=== PATIENT | female | born 1935 | race Caucasian/White ===

== ENCOUNTER 2019-12-20 19:12 | Emergency (ER) | payer MEDICARE, BC, SELFPAY ==
--- NOTE | 2019-12-20 19:16 | XR_ITS ---
WS: [id number] XR chest 1V portable [id number] REASON FOR EXAM: cp FINDINGS: Arteriosclerotic changes in the arch the aorta are seen. The heart is normal in size. The lung lux are well aerated. The chest is unchanged since May 22, 2013. XR/XR chest 1V portable [id number] IMPRESSION: Arteriosclerotic changes.
--- NOTE | 2019-12-20 19:17 | ED_ITS ---
HPI - Chest Pain General: Chief Complaint: Arrhythmia/Palpitations Stated Complaint: high heart rate Time Seen by Provider: 12/20/19 19:12 Source: patient and EMS Mode of arrival: EMS Limitations: no limitations History of Present Illness: HPI narrative: 84-year-old female states she is outside working start having palpitations and slight chest pain EMS arrived and found her to be in SVT which she is unsure she had a history of. Patient given adenosine in route and converted. Patient states she is now asymptomatic and feels much improved. She denies any shortness of breath. Denies any fevers. MD complaint: chest pain Onset (ago): hour(s) Associated symptoms: Reports palpitations; Deny abdominal pain, dyspnea, fever(s), nausea or vomiting Review of Systems Const: Denies: fever(s), chills, body aches or change in appetite Eyes: Denies: blurry vision or eye discomfort ENMT: Denies: throat pain or dental pain Card: Reports: chest pain and palpitations Resp: Denies: dyspnea GI: Denies: abdominal pain, nausea, vomiting or diarrhea : Denies: dysuria Musc: Denies: neck pain or back pain Skin/Breast: Denies: rash Neuro: Denies: headache(s) Psych: Denies: depression Ray/Lymph: Denies: easy bruising All/Imm: Denies: urticaria PFSH ED PFSH: Social History Smoking and tobacco status: former smoker Physical Exam Const: COMMON NORMALS: no acute distress, patient oriented x3 and healthy appearing HENMT: COMMON NORMALS: normocephalic and atraumatic HEAD & SCALP: normocephalic and atraumatic Eye: COMMON NORMALS: Equal, round and reactive pupils present and EOMs intact bilaterally PUPIL: Yes Equal, round and reactive pupils present Neck/C-Spine: COMMON NORMALS: full ROM and supple Chest: COMMONS NORMALS: normal inspection of the chest and normal palpation of entire chest wall Resp: COMMON NORMALS: normal respiratory effort, No retractions, No use of accessory muscles and clear to auscultation bilaterally AUSCULTATION: clear to auscultation bilaterally Cardio: COMMON NORMALS: regular rate, regular rhythm and No murmurs present (Cardio) RATE: regular rate RHYTHM: regular rhythm GI: COMMON NORMALS: Normal to inspection, nondistended, normoactive bowel sounds present, Soft to palpation, non-tender and no masses PALPATION: Yes Soft to palpation Extremity: COMMON NORMALS: normal to inspection and full ROM Neuro: COMMON NORMALS: patient oriented x3, moves all extremities and no focal motor deficits Psych: COMMON NORMALS: mental status grossly normal, Normal thought process p resent and cooperative THOUGHT PROCESS: Normal thought process present Skin: COMMON NORMALS: no rashes or lesions noted and no wounds GENERAL SKIN EXAM: no rashes or lesions noted Course Vital Signs: Vital signs: Vital Signs Temperature 98.2 F 12/20/19 19:19 Pulse Rate 81 12/20/19 21:16 Respiratory Rate 21 H 12/20/19 21:16 Blood Pressure 122/83 12/20/19 21:16 Pulse Oximetry 96 12/20/19 21:16 MDM - Chest Pain MDM Narrative: Medical decision making narrative: Patient presents here with likely SVT. She is converted by EMS with adenosine and has been asymptomatic since then. Patient's troponins are negative. Patient is requesting discharge and she is stable for discharge and is to follow-up with her spectral scientist in 3 to 5 days return if worsening. She understands and agrees to plan. Lab Data: Labs: Lab Results 12/20/19 12/20/19 12/20/19 Range/Units 19:21 19:21 19:21 WBC 6.8 (4.0-10.0) 10^3/ uL RBC 4.99 (4.1-5.3) 10^6/u L Hgb 14.0 (11.5-15.3) g/dL Hct 45.0 (37.0-47.0) % MCV 90.2 (81-99) fL MCH 28.1 (28.0-34.0) pg MCHC 31.1 (30.0-36.0) g/dL RDW 13.2 (12.1-15.1) % Plt Count 239 (130-400) 10^3/c mm MPV 11.7 H (7.4-10.4) fL Neut % (Auto) 48.6 % Lymph % (Auto) 40.1 % [place] % (Auto) 8.2 % Eos % (Auto) 2.1 % Baso % (Auto) 0.9 % Neut # (Auto) 3.3 (1.8-7.7) 10^3/u L Lymph # (Auto) 2.7 (0.8-4.8) 10^3/u L [place] # (Auto) 0.6 (0.2-0.9) 10^3/u L Eos # (Auto) 0.1 (0.0-0.8) 10^3/u L Baso # (Auto) 0.1 (0.0-0.1) 10^3/u L Nucleated RBC % (a uto) 0 % Nucleated RBCs # 0.0 /100WBC Sodium 141 (136-145) mmol/L Potassium 4.1 (3.5-5.1) mmol/L Chloride 103 (98-107) mmol/L Carbon Dioxide 26 (22-29) mmol/L Anion Gap 16.1 (5-19) BUN 11 (8-23) mg/dL Creatinine 0.7 (0.5-0.9) mg/dL Glucose 150 H (65-115) mg/dL Calculated Osmolal ity 291 (285-295) mOsm/k g Calcium 9.7 (8.5-10.5) mg/dL Total Bilirubin 0.3 (0.15-1.2) mg/dL AST 23 (0-32) U/L ALT 13 (0-33) U/L Alkaline Phosphata se 63 (35-105) IU/L Troponin T Baselin e 12 H (0-10) ng/L Troponin T 120 Min [place] (0-10) ng/L Delta Troponin T (0-10) ABS# Total Protein 6.4 L (6.6-8.7) g/dL Albumin 4.3 (3.5-5.2) g/dL Globulin 2.1 (1.3-4.6) g/dL 12/20/19 Range/Units 20:55 WBC (4.0-10.0) 10^3/ uL RBC (4.1-5.3) 10^6/u L Hgb (11.5-15.3) g/dL Hct (37.0-47.0) % MCV (81-99) fL MCH (28.0-34.0) pg MCHC (30.0-36.0) g/dL RDW (12.1-15.1) % Plt Count (130-400) 10^3/c mm MPV (7.4-10.4) fL Neut % (Auto) % Lymph % (Auto) % [place] % (Auto) % Eos % (Auto) % Baso % (Auto) % Neut # (Auto) (1.8-7.7) 10^3/u L Lymph # (Auto) (0.8-4.8) 10^3/u L [place] # (Auto) (0.2-0.9) 10^3/u L Eos # (Auto) (0.0-0.8) 10^3/u L Baso # (Auto) (0.0-0.1) 10^3/u L Nucleated RBC % (a uto) % Nucleated RBCs # /100WBC Sodium (136-145) mmol/L Potassium (3.5-5.1) mmol/L Chloride (98-107) mmol/L Carbon Dioxide (22-29) mmol/L Anion Gap (5-19) BUN (8-23) mg/dL Creatinine (0.5-0.9) mg/dL Glucose (65-115) mg/dL Calculated Osmolal ity (285-295) mOsm/k g Calcium (8.5-10.5) mg/dL Total Bilirubin (0.15-1.2) mg/dL AST (0-32) U/L ALT (0-33) U/L Alkaline Phosphata se (35-105) IU/L Troponin T Baselin e (0-10) ng/L Troponin T 120 [address] [place] 18.31 H (0-10) ng/L Delta Troponin T 6.31 (0-10) ABS# Total Protein (6.6-8.7) g/dL Albumin (3.5-5.2) g/dL Globulin (1.3-4.6) g/dL Imaging Data^: CXR: Attestation: I personally reviewed and interpreted this imaging study as follows: My impression: no acute abnormality EKG Data^: EKG 1: Attestation: I personally reviewed and interpreted this EKG as follows: EKG interpretation date: 12/20/19 EKG interpretation time: 19:37 Interpretation: nsr hr [address] or t wave abnormalities qrs 113 qtc 406 EKG 2: Attestation: I personally reviewed and interpreted this EKG as follows: EKG interpretation date: 12/20/19 EKG interpretation time: 20:57 Interpretation: nsr hr [address] or t wave abnormalities qrs 90 qtc 416 Discharge Plan Discharge Patient Disposition: Home, Self-Care Clinical Impression: Palpitations, Supraventricular tachycardia Condition: Stable Prescriptions: No Action lisinopril 5 mg Tablet 5 mg PO BID RF: 0 Zyrtec 10 mg Tablet 10 mg PO PRN RF: 0 Aspir-81 81 mg Tablet,Delayed Release (Dr/Ec) 162 mg PO PRN RF: 0 rosuvastatin 20 mg Tablet 20 mg PO QPM RF: 0 Vitamin C 1 tab PO DAILY RF: 0 Vitamin D3 1 cap PO DAILY RF: 0 Discharge Orders: Discharge Order (Routine); Ordered 12/20/19 Ordered By: Rene Amaro Referrals: Aggie Armando MD [Physician] - 1-3 days Flex Nelson MD [Primary Care Provider] - Discharge Diet: Advance as tolerated Discharge Activity: Resume usual activity Patient Instructions: Supraventricular Tachycardia (ED) Coding Level of Care Code ED 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
[2019-12-20 19:19] VITALS: BP 149/87; PULSE 104; RESP 16; TEMP 36.8; O2SAT 96; BMI 24.5
[2019-12-20 19:30] LABS: Basophils # 0.1 10^3/uL (0.0-0.1); Basophils % 0.9 %; Eosinophils # 0.1 10^3/uL (0.0-0.8); Eosinophils % 2.1 %; Lymphocytes # 2.7 10^3/uL (0.8-4.8); Lymphocytes % 40.1 %; Mean Corpuscular HGB Conc 31.1 g/dL (30.0-36.0); Mean Corpuscular Hemoglobin 28.1 pg (28.0-34.0); Mean Corpuscular Volume 90.2 fL (81-99); Mean Platelet Volume 11.7 fL (7.4-10.4); Monocytes # 0.6 10^3/uL (0.2-0.9); Monocytes % 8.2 %; Neutrophils # 3.3 10^3/uL (1.8-7.7); Neutrophils % 48.6 %; Nucleated Red Blood Cells % 0 %; Platelet Count 239 10^3/cmm (130-400); Red Blood Count 4.99 10^6/uL (4.1-5.3); Red Cell Distribution Width 13.2 % (12.1-15.1); White Blood Count 6.8 10^3/uL (4.0-10.0)
[2019-12-20 19:49] VITALS: BP 137/80; PULSE 98; RESP 18; O2SAT 96
[2019-12-20 20:00] LABS: Alanine Aminotransferase 13 U/L (0-33); Albumin Level 4.3 g/dL (3.5-5.2); Alkaline Phosphatase 63 IU/L (35-105); Anion Gap 16.1 (5-19); Aspartate Amino Transferase 23 U/L (0-32); Blood Urea Nitrogen 11 mg/dL (8-23); Calcium 9.7 mg/dL (8.5-10.5); Carbon Dioxide 26 mmol/L (22-29); Chloride 103 mmol/L (98-107); Creatinine Clr Calc Pharmacy 53.1254; Globulin 2.1 g/dL (1.3-4.6); Glucose 150 mg/dL (65-115); Osmolality Calculated 291 mOsm/kg (285-295); Potassium 4.1 mmol/L (3.5-5.1); Sodium 141 mmol/L (136-145); Total Bilirubin 0.3 mg/dL (0.15-1.2); Total Protein 6.4 g/dL (6.6-8.7)
[2019-12-20 20:03] LABS: Troponin(5th) Baseline 12 ng/L (0-10)
[2019-12-20 20:09] VITALS: BP 150/82; PULSE 93; RESP 16; O2SAT 96
[2019-12-20 20:43] VITALS: PULSE 90; RESP 19; O2SAT 95
--- NOTE | 2019-12-20 21:03 | PC.NURSE ---
EKG done at 2100 and shown to ER doctor
[2019-12-20 21:16] VITALS: BP 122/83; PULSE 81; RESP 21; O2SAT 96
--- NOTE | 2019-12-20 21:16 | ECG_ITS ---
[facility] ED Test Date: 2019-12-20 Pat Name: Ailyn Anthony Department: Room: Gender: Female Facility Manager: : 1935 Requested By: Rene Amaro Order Number: [id number] Stephania MD: Fernando Camargo M.D. Measurements Intervals [place] Rate: 89 P: 48 VT: 147 QRS: 10 QRSD: 90 T: 61 QT: 370 QTc: 450 Interpretive Statements SINUS RHYTHM No previous ECG available for comparison Electronically Signed On 12-21-2019 7:57:04 CDT by Feranndo Camargo M.D. [id number]
[2019-12-20 21:35] LABS: Troponin 5 2HR 18.31 ng/L (0-10); Troponin 5 2HR Delta 6.31 ABS# (0-10)
[2019-12-20 21:55] VITALS: BP 127/80; PULSE 79; RESP 25; O2SAT 95
--- NOTE | 2019-12-26 09:56 | DCPLANNER ---
late entry- systems integration manager had message to schedule a follow up appointment for patient with [facility]. systems integration manager called [facility], spoke with Deirdre, a follow up appointment was scheduled for Tuesday, December 24, 2019 at 10:00. Patient did attend the appointment.
== END 2019-12-20 22:04 | disposition home or self-care (01) ==
PROVIDERS: Emergency Provider Emergency Medicine; PCP Family Medicine
DX: I47.1 Supraventricular tachycardia (principal); Z79.82 Long term (current) use of aspirin; Z87.891 Personal history of nicotine dependence
CPT/HCPCS: 12345; 71045; 80053; 84484; 85025; 93005; 99283; 99284

== ENCOUNTER 2020-09-16 12:54 | Outpatient (CLI) | payer MEDICARE, BC, SELFPAY ==
--- NOTE | 2020-09-16 12:56 | MM_ITS ---
WS: [id number] BILATERAL DIGITAL SCREENING MAMMOGRAPHY WITH CAD CLINICAL INFORMATION: SCREENING HISTORY: Screening mammogram. No current complaints. COMPARISON: June 04, 2019 TECHNIQUE: Bilateral CC and MLO views. FINDINGS: Scattered fibroglandular densities bilaterally. No suspicious focal mass, asymmetry, calcifications, or architectural distortion. No evidence of malignancy. Lucent centered and punctate calcifications. Vascular calcifications. MM/[place] [id number] IMPRESSION: BI-RADS: 2-Benign FOLLOW UP: 1 Year Follow-up Recommend return to annual screening mammography.
== END 2020-09-16 12:55 | disposition home or self-care (01) ==
LOC: RADSHAW 12:55
PROVIDERS: PCP Nurse Practitioner Family; Visit Provider Nurse Practitioner Family
DX: Z12.31 Encounter for screening mammogram for malignant neoplasm of breast (principal)
CPT/HCPCS: 77067

== ENCOUNTER 2022-01-13 10:16 | Emergency (ER) | payer MEDICARE, BC, SELFPAY ==
--- NOTE | 2022-01-13 10:25 | ECG_ITS ---
[facility] Test Date: 2022-01-13 Pat Name: Ailyn Anthony Department: Room: Gender: Female Professor Of Counseling: : 1935 Requested By: Yakov Hou Order Number: [id number] Stephania MD: Marcela Brennan M.D. Measurements Intervals [place] Rate: 87 P: 48 [place]: 160 QRS: 18 QRSD: 94 T: 61 QT: 380 QTc: 457 Interpretive Statements SINUS RHYTHM LOW QRS VOLTAGE IN PRECORDIAL LEADS [QRS DEFLECTION < 1.0 mV IN CHEST LEADS] Compared to ECG 12/20/2019 20:57:23 Low QRS voltage now present Electronically Signed On 01-13-2022 23:40:26 CDT by Marcela Brennan M.D. [id number] f
--- NOTE | 2022-01-13 10:25 | XR_ITS ---
WS: [id number] Portable AP upright chest, 01/13/2022 Clinical Data: chest pain Comparison: Portable chest, 12/20/2019. Findings: No nodules, masses or effusions are seen. The heart is normal. The pulmonary vascularity is not increased. No pneumonia or pneumothorax is seen. The aortic arch and descending thoracic aorta s how tortuosity. Monitor leads are on the chest wall. XR/XR chest 1V portable [id number] Impression: Atherosclerosis.
[2022-01-13 10:34] VITALS: BP 147/86; PULSE 83; RESP 15; O2SAT 94; BMI 24.2
[2022-01-13 10:36] LABS: Basophils # 0.1 10^3/uL (0.0-0.1); Basophils % 0.6 %; Eosinophils # 0.2 10^3/uL (0.0-0.8); Eosinophils % 1.9 %; Hematocrit 45.5 % (37.0-47.0); Hemoglobin 14.6 g/dL (11.5-15.3); Lymphocytes # 3.2 10^3/uL (0.8-4.8); Lymphocytes % 34.2 %; Mean Corpuscular HGB Conc 32.1 g/dL (30.0-36.0); Mean Corpuscular Hemoglobin 27.4 pg (28.0-34.0); Mean Corpuscular Volume 85.5 fl (81-99); Mean Platelet Volume 12.5 fL (7.4-10.4); Monocytes # 0.7 10^3/uL (0.2-0.9); Monocytes % 7.6 %; Neutrophils # 5.21 10^3/uL (1.8-7.7); Neutrophils % 55.5 %; Nucleated Red Blood Cells % 0 %; Platelet Count 262 10^3/cmm (130-400); Red Blood Count 5.32 10^6/uL (4.1-5.3); Red Cell Distribution Width 13.7 % (12.1-15.1); White Blood Count 9.4 10^3/uL (4.0-10.0)
[2022-01-13] MEDS: aspirin 81 mg Chew Tablet 324 MG PO (10:41)
[2022-01-13 10:55] LABS: Alanine Aminotransferase 17 U/L (0-33); Albumin Level 4.4 g/dL (3.5-5.2); Alkaline Phosphatase 83 IU/L (35-105); Anion Gap 14.7 (5-19); Aspartate Amino Transferase 27 U/L (0-32); Blood Urea Nitrogen 16 mg/dL (8-23); Calcium 9.5 mg/dL (8.5-10.5); Carbon Dioxide 27 mmol/L (22-29); Chloride 104 mmol/L (98-107); Globulin 2.9 g/dL (1.3-4.6); Glucose 102 mg/dL (65-115); Osmolality Calculated 295 mOsm/kg (285-295); Potassium 3.7 mmol/L (3.5-5.1); Sodium 142 mmol/L (136-145); Total Bilirubin 0.4 mg/dL (0.15-1.2); Total Protein 7.3 g/dL (6.6-8.7)
[2022-01-13 11:01] LABS: Troponin(5th) Baseline 9 ng/L (0-10)
[2022-01-13 11:04] VITALS: BP 166/112; PULSE 93; RESP 15; O2SAT 97
[2022-01-13] MEDS: metoprolol succinate ER (24 HR) 25 mg Tablet PO (11:20)
--- NOTE | 2022-01-13 12:24 | W.ED.DIZZY ---
HPI - Dizziness General: Chief Complaint: Dizziness Stated Complaint: SVT Time Seen by Provider: 01/13/22 10:23 Source: patient Mode of arrival: ambulatory Limitations: no limitations History of Present Illness: HPI Narrative: 83-iwww-meij-old female presents emergency room via EMS she was helping take care of a family member this morning and while course or exerting herself suddenly had onset of SVT. She has known history of SVT she got lightheaded and dizzy from when she went to lay down it showed no signs relenting and she called EMS. EMS treated with adenosine in the field the time she arrived here she is in normal sinus rhythm without symptoms. She did have some transient chest pain with the episode but that has resolved. She is not currently taking anything for rate control is taking 20 mg a day of lisinopril. MD elicited complaint: dizziness, lightheadedness and near syncope Pertinent past history: other (SVT) Onset (ago): minute(s) Timing: sudden onset Severity: moderate Description: lightheadedness Context: change in body position History of similar symptoms: Yes Exacerbating factors: movement/ambulation Relieving factors: rest Associated symptoms: Reports nausea and palpitations; Denies change in hearing, chest pain, chills, cough, diaphoresis, ear discharge, ear pressure, fevers/chills, headache(s), malaise, nasal congestion, rash, short of breath, syncope, tinnitus, vomiting or weakness Review of Systems Const: Denies: fever(s), chills, fatigue, malaise or diaphoresis ENMT: Denies: ear discharge, change in hearing, tinnitus or nasal congestion Card: Reports: palpitations, irregular heart rhythm, lightheadedness and pre-syncope; Denies: chest pain or syncope Resp: Denies: dyspnea, productive cough or non-productive cough GI: Reports: nausea; Denies: abdominal pain or vomiting : Denies: flank pain, difficulty voiding, dysuria, urinary frequency or urinary urgency Skin/Breast: Denies: rash or pruritus Neuro: Denies: headache(s) PFS ED PFSH: Medical History History of palpitations Supraventricular tachycardia Surgical History Hx of hysterectomy Hx of ligation of vein Hx of tonsillectomy Family History Grandmother CAD (coronary artery disease) Hyperlipidemia Hypertension Stroke Family/Other Cancer Dementia Sister CAD (coronary artery disease) Father Lung disease Denies family history of Diabetes Clotting disorder Psychiatric illness Chronic kidney disease (CKD) Suicide Anesthesia complication Bleeding disorder Family history of premature coronary artery disease Social History Smoking and tobacco status: former smoker Alcohol intake: current Alcohol intake frequency: holidays/special occasions only Physical Exam Const: COMMON NORMALS: no acute distress GENERAL APPEARANCE: cooperative and comfortable ORIENTATION/CONSCIOUSNESS: Yes awake, Yes oriented to person, Yes oriented to place and Yes oriented to time HENMT: COMMON NORMALS: normocephalic, atraumatic and hearing grossly normal bilaterally HEAD & SCALP: normocephalic and atraumatic Resp: COMMON NORMALS: normal respiratory effort, No retractions, No use of accessory muscles and clear to auscultation bilaterally AUSCULTATION: clear to auscultation bilaterally Cardio: COMMON NORMALS: regular rhythm RATE: tachycardic RHYTHM: regular rhythm GI: COMMON NORMALS: Soft to palpation and No hepatosplenomegaly present AUSCULTATION: Yes normoactive bowel sounds PALPATION: Yes Soft to palpation, No Tenderness to palpation present (GI), No Guarding due to palpation present (GI) and Yes No hepatosplenomegaly present Extremity: COMMON NORMALS: normal to inspection, capillary refill normal, no clubbing, cyanosis or edema, no calf tenderness and no pedal edema Neuro: SENSORIUM/ORIENTATION: Yes oriented to person, Yes oriented to place and Yes oriented to time Skin: COMMON NORMALS: no rashes or lesions noted GENERAL SKIN EXAM: no rashes or lesions noted Course Vital Signs: Vital signs: Vital Signs Pulse Rate 93 01/13/22 11:04 Respiratory Rate 15 01/13/22 11:04 Blood Pressure 166/112 01/13/22 11:04 Pulse Oximetry 97 01/13/22 11:04 MDM - Dizziness Medical Decision Making Converted from SVT to normal sinus rhythm in the field. We will start her on Toprol-XL labs reviewed and discussed with her. Troponins negative EKG does not show anything acute. Follow-up with cardiology. Medical Records I reviewed the patient's medical records. Lab Data I reviewed the patient's lab results. : 01/13/22 10:27 01/13/22 10:27 Radiology Impressions Chest X-Ray 01/13/22 10:25 Impression: Atherosclerosis. Laboratory Results WBC 9.4 10^3/uL (4.0-10.0) 01/13/22 10:27 RBC 5.32 10^6/uL (4.1-5.3) H 01/13/22 10:27 Hgb 14.6 g/dL (11.5-15.3) 01/13/22 10:27 Hct 45.5 % (37.0-47.0) 01/13/22 10: MCV 85.5 fl (81-99) 01/13/22 10:27 MCH 27.4 pg (28.0-34.0) L 01/13/22 10: MCHC 32.1 g/dL (30.0-36.0) 01/13/22 10:27 RDW 13.7 % (12.1-15.1) 01/13/22 10:27 Plt Count 262 10^3/cmm (130-400) 01/13/22 10:27 MPV 12.5 fL (7.4-10.4) H 01/13/22 10:27 Neut % (Auto) 55.5 % 01/13/22 10:27 Lymph % (Auto) 34.2 % 01/13/22 10:27 [place] % (Auto) 7.6 % 01/13/22 10:27 Eos % (Auto) 1.9 % 01/13/22 10:27 Baso % (Auto) 0.6 % 01/13/22 10:27 Neut # (Auto) 5.21 10^3/uL (1.8-7.7) 01/13/22 10:27 Lymph # (Auto) 3.2 10^3/uL (0.8-4.8) 01/13/22 10:27 [place] # (Auto) 0.7 10^3/uL (0.2-0.9) 01/13/22 10:27 Eos # (Auto) 0.2 10^3/uL (0.0-0.8) 01/13/22 10:27 Baso # (Auto) 0.1 10^3/uL (0.0-0.1) 01/13/22 10:27 Nucleated RBC % (auto) 0 % 01/13/22 10:27 Nucleated RBCs # 0.0 /100WBC 01/13/22 10:27 Sodium 142 mmol/L (136-145) 01/13/22 10:27 Potassium 3.7 mmol/L (3.5-5.1) 01/13/22 10:27 Chloride 104 mmol/L (98-107) 01/13/22 10:27 Carbon Dioxide 27 mmol/L (22-29) 01/13/22 10:27 Anion Gap 14.7 (5-19) 01/13/22 10:27 BUN 16 mg/dL (8-23) 01/13/22 10:27 Creatinine 0.7 mg/dL (0.5-0.9) 01/13/22 10:27 GFR Calculation Not Reportable 01/13/22 01:27 Glucose 102 mg/dL (65-115) 01/13/22 10:27 Calculated Osmolality 295 mOsm/kg (285-295) 01/13/22 10:27 Calcium 9.5 mg/dL (8.5-10.5) 01/13/22 10:27 Total Bilirubin 0.4 mg/dL (0.15-1.2) 01/13/22 10:27 AST 27 U/L (0-32) 01/13/22 10:27 ALT 17 U/L (0-33) 01/13/22 10:27 Alkaline Phosphatase 83 IU/L (35-105) 01/13/22 10:27 Troponin T Baseline 9 ng/L (0-10) 01/13/22 10:27 Troponin T 120 Minute 12.47 ng/L (0-10) H 01/13/22 12:37 Delta Troponin T 3.47 ABS# (0-10) 01/13/22 12:37 Total Protein 7.3 g/dL (6.6-8.7) 01/13/22 10:27 Albumin 4.4 g/dL (3.5-5.2) 01/13/22 10:27 Globulin 2.9 g/dL (1.3-4.6) 01/13/22 10:27 Discharge Plan Discharge Patient Disposition: Home Clinical Impression: Supraventricular tachycardia, Hypertension Condition: Stable Prescriptions: New Toprol XL 25 mg tablet extended release 24 hr 25 mg PO DAILY Qty: 30 0RF No Action cyanocobalamin (vitamin B-12) 1,000 mcg capsule 1,000 mcg PO DAILY 0RF cetirizine [Zyrtec] 10 mg Tablet 10 mg PO PRN PRN (Reason: Allergy Symptoms) 0RF rosuvastatin 20 mg Tablet 20 mg PO QPM 0RF lisinopril 5 mg tablet 20 mg PO DAILY 0RF Aspir-81 81 mg Tablet,Delayed Release (Dr/Ec) 81 mg PO DAILY 0RF Vitamin C 250 mg Tablet 250 mg PO DAILY 0RF Vitamin D3 25 mcg (1,000 unit) Tablet 25 mcg PO DAILY 0RF Discharge Orders: Discharge ED (Routine); Ordered 01/13/22 Ordered By: Yakov Avila Referrals: Marion Wiley, PUBLIC HEALTH NURSE [Primary Care Provider] - Discharge Diet: Usual diet Discharge Activity: Limit activity as instructed Activity Restrictions/Additional Instructions: Limit exertional activity. Follow-up with your primary care doctor within the week to reevaluate blood pressure and heart rate. Coding Level of Care Code ED Enrollment Clerk for Corbin Anderson
[2022-01-13 13:24] LABS: Troponin 5 2HR 12.47 ng/L (0-10)
[2022-01-13 13:25] LABS: Troponin 5 2HR Delta 3.47 ABS# (0-10)
== END 2022-01-13 12:49 | disposition home or self-care (01) ==
PROVIDERS: Emergency Provider Family Medicine; PCP Nurse Practitioner Family
DX: I47.1 Supraventricular tachycardia (principal); I10 Essential (primary) hypertension; Z79.82 Long term (current) use of aspirin; Z87.891 Personal history of nicotine dependence
CPT/HCPCS: 71045; 80053; 84484; 85025; 93005; 99285

== ENCOUNTER 2024-12-06 01:26 | Emergency (ER) | payer MEDICARE, BC, SELFPAY ==
[2024-12-06] VITALS (26 sets, daily range): BP systolic 142–196; BP diastolic 59–100; PULSE 60–77; RESP 14–24; TEMP 36.7; O2SAT 89–96; BMI 25.2
--- NOTE | 2024-12-06 01:29 | ECG_ITS ---
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
--- NOTE | 2024-12-06 01:36 | XRR_ITS ---
PROCEDURE INFORMATION: Exam: XR Chest Exam date and time: 12/06/2024 1:38 AM Age: 89 years old Clinical indication: Pain; Chest pressure; Additional info: Chest pain TECHNIQUE: Imaging protocol: Radiologic exam of the chest. Views: 1 view. COMPARISON: CR XR chest 1V portable [id number] 01/13/2022 10:56 AM FINDINGS: Lungs: Unremarkable. No consolidation. Pleural spaces: Unremarkable. No pleural effusion. No pneumothorax. Heart/Mediastinum: Unremarkable. No cardiomegaly. Bones/joints: Unremarkable. XR/XR chest 1V portable [id number] IMPRESSION: No acute findings.
--- NOTE | 2024-12-06 01:37 | ED_ITS ---
HPI - Chest Pain 2 General: Chief Complaint: Chest Pain Stated Complaint: CP Time Seen by Provider: 12/06/24 01:36 History of Present Illness: Patient is a well-appearing 81-year-old female seen for chest discomfort, lightheadedness, and palpitations which came on when she awoke from sleep tonight. She states that she has had similar symptoms in the past multiple times and been worked up and worn Holter monitors and always been told she has a clean bill of health. She has never had a history of coronary artery disease or other cardiopulmonary issues. By the time she got to the emergency department symptoms had spontaneously resolved. She denies recent fever, sickness, cough, abdominal pain, nausea, vomiting, dysuria, frequency, and has no other acute complaints. Related Data Home Medications ?Medication ?Instructions ?Recorded ?Confirmed cetirizine 10 mg tablet (Zyrtec) 10 mg PO PRN PRN Eligio rgy Symptoms 12/20/19 01/13/22 rosuvastatin 20 mg tablet 20 mg PO QPM 12/20/19 cyanocobalamin (vitamin B-12) 1,000 mcg PO DAILY 12/2301/13/22 1,000 mcg capsule lisinopril 5 mg tablet 20 mg PO DAILY 08/28/2001/01 ascorbic acid (vitamin C) 250 mg 250 mg PO DAILY 01/1301/13/22 tablet (Vitamin C) aspirin 81 mg tablet,delayed 81 mg PO DAILY 01/13/22 0 01/13/22 release cholecalciferol (vitamin D3) 25 25 mcg PO DAILY 01/13/22 mcg (1,000 unit) tablet (Vitamin D3) Previous Rx's ?Medication ?Instructions ?Recorded metoprolol succinate 25 mg 25 mg PO DAILY #30 tabs tablet,extended release 24 hr (Toprol XL) Allergies Allergy/AdvReac Type Severity Reaction Status Date / Time codeine Allergy ALGY-Hives Verified 01/13/22 11:05 Penicillins Allergy ALGY-Hives Verified 01/13/22 11:05 tetracycline Allergy ALGY-Hives Verified 01/13/22 11:05 [facility] ED 2 [facility]: Medical History History of palpitations Supraventricular tachycardia Surgical History Hx of hysterectomy Hx of ligation of vein Hx of tonsillectomy Family History Grandmother CAD (coronary artery disease) Hyperlipidemia Hypertension Stroke Family/Other Cancer Dementia Sister CAD (coronary artery disease) Father Lung disease Denies family history of Diabetes Clotting disorder Psychiatric illness Chronic kidney disease (CKD) Suicide Anesthesia complication Bleeding disorder Family history of premature coronary artery disease Social History Smoking and tobacco/nicotine status: former use of tobacco/nicotine Alcohol intake: current Alcohol intake frequency: holidays/special occasions only Substance/Drug Use: never Physical Exam 2 Const: COMMON NORMALS: no acute distress, patient oriented x3 and alert HENMT: COMMON NORMALS: normocephalic and atraumatic HEAD & SCALP: n ormocephalic and atraumatic Eye: COMMON NORMALS: Equal, round and reactive pupils present, EOMs intact bilaterally and no scleral icterus PUPIL: Yes Equal, round and reactive pupils present Resp: COMMON NORMALS: normal respiratory effort and No retractions Cardio: COMMON NORMALS: regular rate, regular rhythm and No murmurs present (Cardio) RATE: regular rate RHYTHM: regular rhythm GI: COMMON NORMALS: Normal to inspection, nondistended, normoactive bowel sounds present, Soft to palpation and non-tender PALPATION: Yes Soft to palpation Neuro: COMMON NORMALS: patient oriented x3 SENSORIUM/ORIENTATION: Yes alert Skin: COMMON NORMALS: no rashes or lesions noted GENERAL SKIN EXAM: no rashes or lesions noted Course 2 Vital Signs: Vital signs: Vital Signs Temperature 98.1 F 12/06/24 01:27 Pulse Rate 60 12/06/24 05:30 Respiratory Rate 14 12/06/24 05:30 Blood Pressure 157/80 12/06/24 05:35 Pulse Oximetry 96 12/06/24 05:40 Oxygen Delivery Me thod Nasal Cannula 12/06/24 02:19 Oxygen Flow Rate 3 12/06/24 02:19 MDM - Chest Pain Medical Decision Making In summary, patient is a well-appearing 89-year-old female from home seen for a vague chest discomfort, lightheadedness, and sensation of palpitations which spontaneously resolved after roughly 15 minutes. She relates that she has had multiple occasions similar to this and has been seen in the emergency department multiple times with negative workups. We discussed her test results and she shows good understanding that she does not have a PE, pneumonia, ACS, or other acute process warranting hospitalization or further workup. I believe that anxiety may play a significant role in her symptomatology and urged her to talk with her primary care doctor about treating this more directly. She shows good understanding and agrees to the plan Lab Data 12/06/24 01:50 12/06/24 01:50 Radiology Impressions Chest X-Ray 12/06/24 01:36 IMPRESSION: No acute findings. Chest CTA 12/06/24 01:58 IMPRESSION: 1. No evidence of pulmonary artery emboli. 2. No acute pathologic findings in the chest. 3. Multiple subcentimeter calcified gallstones in the dependent gallbladder. No CT evidence of acute cholecystitis. Laboratory Results WBC 6.93 10^3/uL (3.29-11.43) 12/06/24 01:50 RBC 5.02 10^6/uL (3.85-5.65) 12/06/24 01:50 Hgb 14.40 g/dL (11.27-16.99) 12/06/24 01:50 Hct 44.4 % (36-47) 12/06/24 01:50 MCV 88.4 fl (85-98) 12/06/24 01:50 MCH 28.7 pg (27-33) 12/06/24 01:50 MCHC 32.4 g/dL (30-55) 12/06/24 01:50 RDW 13.2 % (12.1-15.1) 12/06/24 01:50 Plt Count 230 10^3/cmm (157-399) 12/06/24 01:50 MPV 11.0 fL (7.4-10.4) H 12/06/24 01:50 Neut % (Auto) 58.9 % 12/06/24 01:50 Lymph % (Auto) 29.3 % 12/06/24 01:50 [place] % (Auto) 8.5 % 12/06/24 01:50 Eos % (Auto) 2.0 % 12/06/24 01:50 Baso % (Auto) 1.0 % 12/06/24 01:50 Neut # (Auto) 4.08 10^3/uL (1.8-7.7) 12/06/24 01:50 Lymph # (Auto) 2.0 10^3/uL (0.8-4.8) 12/06/24 01:50 [place] # (Auto) 0.6 10^3/uL (0.2-0.9) 12/06/24 01:50 Eos # (Auto) 0.1 10^3/uL (0.0-0.8) 12/06/24 01:50 Baso # (Auto) 0.1 10^3/uL (0.0-0.1) 12/06/24 01:50 Nucleated RBC % (auto) 0 % 12/06/24 01:50 Nucleated RBCs # 0.0 /100WBC 12/06/24 01:50 Sodium 142 mmol/L (136-145) 12/06/24 01:50 Potassium 4.1 mmol/L (3.5-5.1) 12/06/24 01:50 Chloride 106 mmol/L (98-107) 12/06/24 01:50 Carbon Dioxide 25 mmol/L (22-29) 12/06/24 01:50 Anion Gap 15.1 (5-19) 12/06/24 01:50 BUN 17 mg/dL (8-23) 12/06/24 01:50 Creatinine 0.6 mg/dL (0.5-0.9) 12/06/24 01:50 GFR Calculation Not Reportable 12/06/24 01:50 Glucose 105 mg/dL (65-115) 12/06/24 01:50 Calculated Osmolality 296 mOsm/kg (285-295) H 12/06/24 01:50 Calcium 9.6 mg/dL (8.5-10.5) 12/06/24 01:50 Total Bilirubin 0.4 mg/dL (0.15-1.2) 12/06/24 01:50 AST 23 U/L (0-32) 12/06/24 01:50 ALT 13 U/L (0-33) 12/06/24 01:50 Alkaline Phosphatase 74 U/L (35-105) 12/06/24 01:50 Troponin T Baseline 13 ng/L (0-10) H 12/06/24 01:50 Troponin T 120 Minute 14.41 ng/L (0-10) H 12/06/24 04:00 Delta Troponin T 1.41 ABS# (0-10) 12/06/24 04:00 Total Protein 6.2 g/dL (6.6-8.7) L 12/06/24 01:50 Albumin 4.2 g/dL (3.5-5.2) 12/06/24 01:50 Globulin 2.0 g/dL (1.3-4.6) 12/06/24 01:50 All radiology interpretation(s) finalized by discharge EKG Data EKG 1: Interpretation: Time?0129?sinus rhythm, rate of 77, no ST segment elevation or depression, no T wave inversions, intervals within normal limits. QTc = 424 Discharge Plan Discharge Patient Disposition: Home Clinical Impression: Chest discomfort Condition: Stable Prescriptions: No Action cyanocobalamin (vitamin B-12) 1,000 mcg capsule 1,000 mcg PO DAILY cetirizine [Zyrtec] 10 mg Tablet 10 mg PO PRN PRN (Reason: Allergy Symptoms) rosuvastatin 20 mg Tablet 20 mg PO QPM lisinopril 5 mg tablet 20 mg PO DAILY Aspir-81 81 mg Tablet,Delayed Release (Dr/Ec) 81 mg PO DAILY Vitamin C 250 mg Tablet 250 mg PO DAILY Vitamin D3 25 mcg (1,000 unit) Tablet 25 mcg PO DAILY Toprol XL 25 mg tablet extended release 24 hr 25 mg PO DAILY Qty: 30 0RF Discharge Orders: Discharge ED (Routine); Ordered 12/06/24 Ordered By: Rolly Millard Discharge Diet: Advance as tolerated Discharge Activity: Increase activity as tolerated Patient Instructions: Anxiety (ED) Activity Restrictions/Additional Instructions: Your EKG, blood test, and imaging are all reassuring. EKG, troponin x 2, and CTA of the chest are all unremarkable for acute process. 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
[2024-12-06 01:57] LABS: Basophils # 0.1 10^3/uL (0.0-0.1); Eosinophils # 0.1 10^3/uL (0.0-0.8); Hematocrit 44.4 % (36-47); Lymphocytes % 29.3 %; Mean Corpuscular HGB Conc 32.4 g/dL (30-55); Mean Corpuscular Hemoglobin 28.7 pg (27-33); Mean Corpuscular Volume 88.4 fl (85-98); Monocytes # 0.6 10^3/uL (0.2-0.9); Monocytes % 8.5 %; Neutrophils # 4.08 10^3/uL (1.8-7.7); Neutrophils % 58.9 %; Nucleated Red Blood Cells % 0 %; Platelet Count 230 10^3/cmm (157-399); Red Blood Count 5.02 10^6/uL (3.85-5.65); Red Cell Distribution Width 13.2 % (12.1-15.1); White Blood Count 6.93 10^3/uL (3.29-11.43)
--- NOTE | 2024-12-06 01:58 | CTR_ITS ---
PROCEDURE INFORMATION: Exam: CTA Chest With Contrast Exam date and time: 12/06/2024 2:48 AM Age: 89 years old Clinical indication: Other: Hypoxia; Additional info: Hypoxia, near syncope, cp TECHNIQUE: Imaging protocol: Computed tomographic angiography of the chest with contrast. Exam focused on the arteries. 3D rendering (Not supervised by radiologist): MIP and/or 3D reconstructed images were created by the technologist. Radiation optimization: All CT scans at this facility use at least one of these dose optimization techniques: automated exposure control; mA and/or kV adjustment per patient size (includes targeted exams where dose is matched to clinical indication); or iterative reconstruction. Contrast material: OMNI 350; Contrast volume: 100 ml; Contrast route: INTRAVENOUS (IV); COMPARISON: CR (CHEST, ) 12/06/2024 1:38 AM RADIATION DOSE METRICS: Total DLP (mGy-cm): 424.33 FINDINGS: Pulmonary arteries: No evidence of pulmonary artery emboli. Aorta: Moderate scattered calcific atheromatous disease of the thoracic aorta. Thyroid: Thyroid is normal. Lungs: Minimal bilateral dependent compressive atelectasis. No focal consolidation. No suspicious pulmonary nodules or masses. Pleural spaces: No pleural effusion. No pneumothorax. Heart: Heart is normal in size. No pericardial effusion. Lymph nodes: No distinct pathologically enlarged lymphadenopathy. Diaphragm: Small hiatal hernia. Gallbladder and biliary ducts: Multiple subcentimeter calcified gallstones in the dependent gallbladder. No CT evidence of acute cholecystitis. Spleen: Numerous small calcified granulomas in the liver and spleen. Bones/joints: No acute osseous findings. Soft tissues: Visualized superficial soft tissues are within normal limits. CT/CT angio chest PE protcl [id number] IMPRESSION: 1. No evidence of pulmonary artery emboli. 2. No acute pathologic findings in the chest. 3. Multiple subcentimeter calcified gallstones in the dependent gallbladder. No CT evidence of acute cholecystitis.
[2024-12-06 02:32] LABS: Troponin(5th) Baseline 13 ng/L (0-10)
[2024-12-06 02:41] LABS: Alanine Aminotransferase 13 U/L (0-33); Albumin Level 4.2 g/dL (3.5-5.2); Alkaline Phosphatase 74 U/L (35-105); Anion Gap 15.1 (5-19); Aspartate Amino Transferase 23 U/L (0-32); Blood Urea Nitrogen 17 mg/dL (8-23); Calcium 9.6 mg/dL (8.5-10.5); Carbon Dioxide 25 mmol/L (22-29); Chloride 106 mmol/L (98-107); Creatinine Clr Calc Pharmacy 49.0221; Glucose 105 mg/dL (65-115); Osmolality Calculated 296 mOsm/kg (285-295); Potassium 4.1 mmol/L (3.5-5.1); Sodium 142 mmol/L (136-145); Total Bilirubin 0.4 mg/dL (0.15-1.2); Total Protein 6.2 g/dL (6.6-8.7)
[2024-12-06] MEDS: iohexol 350 mg/mL 500 mL Btl (per mL) IV (02:50)
[2024-12-06 04:27] LABS: Troponin 5 2HR 14.41 ng/L (0-10); Troponin 5 2HR Delta 1.41 ABS# (0-10)
== END 2024-12-06 06:00 | disposition home or self-care (01) ==
PROVIDERS: Emergency Provider Student in an Organized Health Care Education/Training Program
DX: R07.89 Other chest pain (principal); Z87.891 Personal history of nicotine dependence
CPT/HCPCS: 36415; 71045; 71275; 80053; 84484; 85025; 93005; 99285